=== PATIENT | male | born 1970 | race Two or more races ===

== ENCOUNTER 2020-06-11 17:06 | Inpatient (IN) | payer OTHER ==
[~2020-06-11] VITALS: Ht 175.3 cm; Wt 131.5 kg
[2020-06-11] MEDS ORDERED: ONDANSETRON HCL/PF 4 MG/2 ML VIAL ONE (17:22)
[2020-06-11] MEDS ORDERED: MORPHINE SULFATE INJ 4 MG/ML DISP.SYRIN ONE ×2 (17:22→18:17)
[2020-06-11] MEDS ORDERED: IV NS 0.9% 1,000 ML BAG IV ONE (17:30)
[2020-06-11] MEDS ORDERED: MORPHINE SULFATE INJ 2 MG/ML DISP.SYRIN IV ONE ×2 (17:30→18:30)
[2020-06-11] MEDS ORDERED: ONDANSETRON HCL/PF 4 MG/2 ML VIAL IVP ONE (17:30)
[2020-06-11 17:36] LABS: BASOPHILS % (AUTO) 0.6 % (0.0-2.0); EOSINOPHILS % (AUTO) 1.1 % (0.0-6.0); HEMATOCRIT 44 % (39-51); HEMOGLOBIN 15.5 g/dL (13.5-17.5); LYMPHOCYTES # (AUTO) 1.7 /CMM (0.8-4.8); LYMPHOCYTES % (AUTO) 30.4 % (20.0-44.0); MEAN CORPUSCULAR HGB CONC 36 g/dl (31.0-36.0); MEAN CORPUSCULAR VOLUME 99 fL (80-96); MONOCYTES # (AUTO) 0.4 /CMM (0.1-1.30); MONOCYTES % (AUTO) 6.8 % (2.0-12.0); NEUTROPHILS # (AUTO) 3.4 /CMM (1.8-8.9); NEUTROPHILS % (AUTO) 61.1 % (43.0-81.0); PLATELET COUNT (AUTO) 161 /CMM (150-450); RED BLOOD CELL COUNT(AUTO) 4.39 MIL/uL (4.5-6.0); WHITE BLOOD COUNT (AUTO) 5.6 K/uL (4.3-11.0)
[2020-06-11 17:44] LABS: CREATININE 0.7 mg/dL (0.6-1.3); POTASSIUM 3.7 mmol/L (3.5-5.1)
[2020-06-11 17:49] LABS: BILIRUBIN,URINE Negative (NEGATIVE); BLOOD, URINE Negative Ery/uL (NEGATIVE); COLOR,URINE YELLOW (YELLOW); LEUKOCYTE ESTERASE ,URINE Negative (NEGATIVE); NITRITE, URINE Negative (NEGATIVE); PH,URINE 5.5 (5.0-8.0); PROTEIN,URINE Negative (NEGATIVE); UGLUCOSE Negative (NEGATIVE); UROBILINOGEN,URINE 0.2 EU/dL (0.2)
[2020-06-11 17:49] LABS: ALBUMIN 3.8 g/dL (3.4-5.0); BILIRUBIN,DIRECT 0.1 mg/dL (0.0-0.2); BILIRUBIN,TOTAL 0.4 mg/dL (0.2-1.0); TOTAL PROTEIN, SERUM 8.2 g/dL (6.4-8.2)
[2020-06-11] MEDS ORDERED: IOHEXOL-300 100 ML VIAL IV ONE (18:02)
[2020-06-11] MEDS ORDERED: IV NS 0.9% 250 ML IV ONE (18:02)
[2020-06-11] MEDS ORDERED: CT SWABBABLE VALVE TRANS SET 1 EA INFUS.SET MC ONE (18:02)
--- NOTE | 2020-06-11 19:08 | NUR ---
DR CAMPBELL SPEAKING WITH DR BUENROSTRO
--- NOTE | 2020-06-11 19:18 | NUR ---
GAVE MOVESHEET TO ADMITTING
--- NOTE | 2020-06-11 19:19 | NUR ---
LUCYID SWABBED, SENT TO LAB.
[2020-06-11] MEDS ORDERED: HYDROMORPHONE 1 MG/1 ML DISP.SYRIN IV ONE (19:30)
--- NOTE | 2020-06-11 19:42 | NUR ---
CALL FROM LAB, RAPID COVID NEGATIVE.
[2020-06-11] MEDS ORDERED: HYDROMORPHONE 1 MG/1 ML DISP.SYRIN ONE (19:44)
--- NOTE | 2020-06-11 19:50 | NUR ---
PT MEDICATED, VSS. ON MONITOR AND PULSE OX.
[2020-06-11] MEDS ORDERED: Z GUARD REMEDY 2 OZ OINT TP PRN (20:00)
[2020-06-11] MEDS ORDERED: HYDROCODONE/APAP 5/325MG TABLET PO PRN (20:00)
[2020-06-11] MEDS ORDERED: ONDANSETRON HCL/PF 4 MG/2 ML VIAL IVP PRN (20:00)
[2020-06-11] MEDS ORDERED: MAG HYDROX/AL HYDROX/SIMETH 30 ML UDC PO PRN (20:00)
[2020-06-11] MEDS ORDERED: ACETAMINOPHEN 325 MG TABLET PO PRN (20:00)
[2020-06-11] MEDS ORDERED: MAGNESIUM HYDROXIDE 30 ML UDC PO PRN (20:00)
[2020-06-11] MEDS ORDERED: ZOLPIDEM TARTRATE 5 MG TABLET PO PRN (20:00)
--- NOTE | 2020-06-11 20:13 | NUR ---
REPORT GIVEN TO BRIAN CONDE FOR NAT
[2020-06-11 21:10] VITALS: BP 132/85
--- NOTE | 2020-06-11 21:10 | NUR ---
MS AMBULANCE DRIVER/OPENING NOTES PATIENT ARRIVED TO UNIT VIA WHEELCHAIR, ACCOMPANIED BY ER STAFF; PATIENT A/OX4, BREATHING EVEN AND UNLABORED; TOLERATING ROOM AIR WELL; NO SOB NOTED; AMBULATORY WITH STEADY GAIT; PATIENT COMPLAINING OF ABDOMINAL PAIN 5/10, TOLERABLE; PATIENT REPORTED HE WILL LET US KNOW IF HE NEEDS ANY PAIN MEDICATION; L HAND # 20 INTACT AND PATENT; FLUSHING WELL; NO S/S OF REDNESS OR INFILTRATION NOTED; PATIENT ORIENTED TO UNIT AND STAFF; SAFETY PRECAUTIONS IMPLEMENTED; BED LOCKED IN LOW POSITION; SIDE RAILSX2; CALL LIGHT WITHIN EASY REACH; WILL CONT TO MONITOR
[2020-06-11 21:20] VITALS: BP 132/85
--- NOTE | 2020-06-11 21:45 | NUR ---
MS RN NOTES PATIENT DENIES TAKING ANY HOME MEDS; PATIENT REPORTED HE DOES NOT TAKE ANY HOME MEDICATIONS;
[2020-06-11] MEDS: MORPHINE SULFATE INJ 2 MG/ML DISP.SYRIN IV PRN (22:37)
--- NOTE | 2020-06-11 22:51 | NUR ---
MS RN NOTES PATIENT COMPLAINING OF ABDOMINAL PAIN 03/25, MORPHINE ADMINISTERED PER MD ORDER; WILL CONT TO MONITOR; PATIENT VTE SCORE 2; PATIENT EDUCATED ON VTE PUMPS, PATIENT DECLINED/REFUSED SINCE HE IS AMBULATORY; PATIENT EDUCATED ON RISKS/BENEFITS; PATIENT REFUSED; WILL CONT TO MONITOR
[2020-06-11] MEDS: IV D5/0.45 NACL 1,000 ML IV PRN (23:02)
[2020-06-12] MEDS: MORPHINE SULFATE INJ 2 MG/ML DISP.SYRIN IV PRN ×5 (02:37→20:14)
[2020-06-12] MEDS: PANTOPRAZOLE 40 MG TABLET.DR PO SCH ×2 (06:51→06:57)
[2020-06-12 06:58] LABS: BASOPHILS % (AUTO) 0.5 % (0.0-2.0); EOSINOPHILS % (AUTO) 3.1 % (0.0-6.0); HEMATOCRIT 42 % (39-51); HEMOGLOBIN 14.6 g/dL (13.5-17.5); LYMPHOCYTES # (AUTO) 2.1 /CMM (0.8-4.8); LYMPHOCYTES % (AUTO) 38.7 % (20.0-44.0); MEAN CORPUSCULAR HGB CONC 35 g/dl (31.0-36.0); MEAN CORPUSCULAR VOLUME 102 fL (80-96); MONOCYTES # (AUTO) 0.6 /CMM (0.1-1.30); MONOCYTES % (AUTO) 10.5 % (2.0-12.0); NEUTROPHILS # (AUTO) 2.6 /CMM (1.8-8.9); NEUTROPHILS % (AUTO) 47.2 % (43.0-81.0); PLATELET COUNT (AUTO) 145 /CMM (150-450); RED BLOOD CELL COUNT(AUTO) 4.12 MIL/uL (4.5-6.0); WHITE BLOOD COUNT (AUTO) 5.5 K/uL (4.3-11.0)
[2020-06-12 07:09] LABS: CALCIUM, SERUM 8.5 mg/dL (8.5-10.1); CREATININE 0.7 mg/dL (0.6-1.3); MAGNESIUM 2.2 mg/dL (1.8-2.4); PHOSPHORUS 4.4 mg/dL (2.5-4.9); POTASSIUM 3.9 mmol/L (3.5-5.1)
--- NOTE | 2020-06-12 07:09 | NUR ---
MS RN CLOSING NOTES PATIENT RESTING IN BED COMFORTABLY; A/OX4, BREATHING EVEN AND UNLABORED; TOLERATING ROOM AIR WELL; NO SOB NOTED; PATIENT NPO STATUS MAINTAINED; L HAND #20 INTACT AND PATENT; FLUSHING WELL; TOLERATING IVF WELL; PATIENT ABLE TO MAKE NEEDS KNOWN; ALL NEEDS RENDERED; SAFETY PRECAUTIONS IMPLEMENTED; BED LOCKED IN LOW POSITION; SIDE RAILSX2; CALL LIGHT WITHIN REACH; WILL ENDORSE NAT TO ONCOMING SHIFT
[2020-06-12 07:20] LABS: THYROID STIMULATING HORMONE 4.575 uIU/mL (0.358-3.74)
[2020-06-12 08:00] VITALS: BP 100/60
[2020-06-12] MEDS ORDERED: BUPR100T13 PO (08:18)
[2020-06-12] MEDS ORDERED: GABA300C PO (08:18)
[2020-06-12] MEDS ORDERED: CLON0.1T PO (08:18)
--- NOTE | 2020-06-12 13:00 | NUR ---
shanti palmer in and awre of abd. pain to call dr. muñoz for consult.
--- NOTE | 2020-06-12 13:40 | NUR ---
shanti palmer social worker school here on floor and aware of nausea today after cl liquids.requests to be notified after dinner on pt status.
[2020-06-12 16:00] VITALS: BP 106/61
--- NOTE | 2020-06-12 17:30 | NUR ---
med. x2 with morphine 4mg iv and x1 with zofran.
--- NOTE | 2020-06-12 18:05 | NUR ---
shanti palmer called to check on pt. aware still with nausea after dinner,states she will put in new orders.
--- NOTE | 2020-06-12 18:35 | NUR ---
call out to dr. muñoz,informed him pain and nausea after cl liq. dinner.rn told him spoke to shanti palmer said she will hold pt. till tomorrow.
[2020-06-12] MEDS: IV D5/0.45 NACL 1,000 ML IV PRN (19:01)
--- NOTE | 2020-06-12 19:15 | NUR ---
RN NOTES: RECEIVED AWAKE ON BED, IN SEMI FOWLERS POSITION, A/0X2-4,ORIENTED TO UNIT AND STAFF, NON LABORED BREATHING.FALL, SAFETY AND ASPIRATION PRECAUTION OBSERVED, LH PATENT, BED LOW AND LOCKED, KEPT CALL LIGHT WITHIN EASY REACH.
[2020-06-12 20:00] VITALS: BP 101/61
--- NOTE | 2020-06-12 20:24 | NUR ---
RN NOTES: -AT 1999 EXPLAINED TO PATIENT THAT RN WILL BE GIVING HIS PAIN MEDICATION AFTER SHE GOT ACCESS FROM [employer], INITIALLY HE FEEL UPSET BUT HE UNDERSTAND,HE REFUSE FOR BP CHECK WITH SHIRT FINISHER, AFTER RN EXPLANATION HE AGREED, BP WAS A LITTLE BIT HIGH BECAUSE HE GET UP AND WALK TO THE BATHROOM BP-143/100 MA-90. -MORPHINE GIVEN AT 2013, AFTER THAT HE FEELS RELIEVED AND HE CALM DOWN, RN EXPLAINED TO HIM WE WILL RE-CHECKED THE BP AFTER 30 MIN.
--- NOTE | 2020-06-12 20:45 | NUR ---
RN NOTES: AWAKE WATCHING TV.STABLE AND DOESN'T LOOK ANXIOUS OR IN PAIN HE SAID MORPHINE HELPS, NON PHARMACOLOGIC INTERVENTION RENDERED, HE REQUEST TO CHECK BP LATER, HE WANTS TO RELAX.
[2020-06-12] MEDS: FAMOTIDINE/PF INJ 20 MG/2 ML VIAL IV SCH (21:07)
--- NOTE | 2020-06-12 22:06 | NUR ---
RN NOTES: AGREED FOR BP CHECKED - 102/65 FL-51
[2020-06-13] MEDS: MORPHINE SULFATE INJ 2 MG/ML DISP.SYRIN IV PRN ×3 (00:16→08:51)
--- NOTE | 2020-06-13 02:00 | NUR ---
RN NOTES: -0016 COMPLAINED OF PAIN AND DISCOMFORT,REQUEST FOR HIS PAIN MEDICATION BP-103/70 MA-60 ABLE TO SLEEP AND REST, KEPT ON CLOSE WATCH, CALL LIGHT WITHIN EASY REACH.
--- NOTE | 2020-06-13 05:03 | NUR ---
RN NOTES: -AMBULATE GOING TO THE BATHROOM,WHEN HE RETURNED BACK TO BED ASK FOR HIS PAIN MEDICATION, BP-110/65 TX-70,MORPHINE GIVEN. DIM LIT AND GIVEN WARM BLANKET.
--- NOTE | 2020-06-13 05:29 | NUR ---
RN NOTES: ABLE TO SLEEP AND REST, IVF RESUMED, KEPT CALL LGIHT WITHIN EASY REACH.
--- NOTE | 2020-06-13 07:30 | NUR ---
RN OPENING NOTES RECEIVED PT IN BED AWAKE, A/O X4. ON RA SATURATING @99%. NO SOB OR ANY RESPIRATORY DISTRESS NOTED. NO PAIN REPORTED AT THIS TIME. AMBULATORY WITH BRP. SAFETY MEASURES IMPLEMENTED. CALL LIGHT WITHIN REACH. BED LOCKED AND AT LOWEST POSITION WITH SIDE RAILS UP X2. HOB ELEVATED. WILL CONTINUE TO MONITOR
--- NOTE | 2020-06-13 07:59 | NUR ---
RN NOTES: -ABLE TO SLEEP IN THE NIGHT, , NO BM , URINE-250ML, ENDORSED TO F/U DIET TO ADVANCE FROM CLEAR LIQUID TO TOLERATED,IVF CONTINUE, FOR LAB TEST THIS MORNING, FOR POSSIBLE DISCHARGE PER DR. CAMPBELL. ENDORSED FOR CONTINUITY OF CARE.
[2020-06-13 08:00] VITALS: BP 119/72
[2020-06-13] MEDS: GABAPENTIN 300 MG CAPSULE PO SCH ×2 (08:50→14:58)
[2020-06-13] MEDS: FAMOTIDINE/PF INJ 20 MG/2 ML VIAL IV SCH (08:50)
[2020-06-13 08:57] LABS: BASOPHILS % (AUTO) 0.6 % (0.0-2.0); EOSINOPHILS % (AUTO) 3.5 % (0.0-6.0); HEMATOCRIT 40 % (39-51); HEMOGLOBIN 13.9 g/dL (13.5-17.5); LYMPHOCYTES # (AUTO) 1.6 /CMM (0.8-4.8); LYMPHOCYTES % (AUTO) 34.8 % (20.0-44.0); MEAN CORPUSCULAR HGB CONC 35 g/dl (31.0-36.0); MEAN CORPUSCULAR VOLUME 100 fL (80-96); MONOCYTES # (AUTO) 0.6 /CMM (0.1-1.30); MONOCYTES % (AUTO) 12.3 % (2.0-12.0); NEUTROPHILS # (AUTO) 2.2 /CMM (1.8-8.9); NEUTROPHILS % (AUTO) 48.8 % (43.0-81.0); PLATELET COUNT (AUTO) 121 /CMM (150-450); RED BLOOD CELL COUNT(AUTO) 4.03 MIL/uL (4.5-6.0); WHITE BLOOD COUNT (AUTO) 4.5 K/uL (4.3-11.0)
[2020-06-13] MEDS ORDERED: buPROPion 100 MG TABLET PO SCH (09:00)
[2020-06-13 09:03] LABS: CALCIUM, SERUM 8.8 mg/dL (8.5-10.1); CREATININE 0.7 mg/dL (0.6-1.3); MAGNESIUM 2.1 mg/dL (1.8-2.4); PHOSPHORUS 3.7 mg/dL (2.5-4.9)
[2020-06-13] MEDS ORDERED: Z GUARD REMEDY 2 OZ OINT TP ONE (09:21)
[2020-06-13 11:14] LABS: ALBUMIN 3.1 g/dL (3.4-5.0); BILIRUBIN,DIRECT 0.1 mg/dL (0.0-0.2); BILIRUBIN,TOTAL 0.6 mg/dL (0.2-1.0); TOTAL PROTEIN, SERUM 6.8 g/dL (6.4-8.2)
[2020-06-13] MEDS ORDERED: FAMOTIDINE (20 MG) 20 MG TABLET PO SCH (12:45)
[2020-06-13] MEDS ORDERED: HYDR-3972 PO (13:33)
--- NOTE | 2020-06-13 16:40 | NUR ---
RN CLOSING NOTES PT DISCHARGED TO HOME IN STABLE CONDITION. DISCHARGE INSTRUCTIONS GIVEN TO PT, VERBALIZED UNDERSTANDING. PRESCRIPTION PROVIDED. VS WNL. REFUSED FLU AND PNEUMO VACCINES DESPITE EDUCATION X3. SKIN IS INTACT. WENT HOME VIA PRIVATE CAR ACCOMPANIED BY FRIEND.
== END 2020-06-13 17:00 | disposition home or self-care (01) | DRG 254 ==
LOC: ER 17:10 → MERGE 20:15 → MED 20:15
PROVIDERS: ADMIT Student in an Organized Health Care Education/Training Program; ATTEND Registered Nurse
DX: K43.9 Ventral hernia without obstruction or gangrene (principal); G89.4 Chronic pain syndrome; B19.20 Unspecified viral hepatitis C without hepatic coma; F20.9 Schizophrenia, unspecified; F31.9 Bipolar disorder, unspecified; F41.9 Anxiety disorder, unspecified; Z85.47 Personal history of malignant neoplasm of testis; Z87.891 Personal history of nicotine dependence; K43.6 Other and unspecified ventral hernia with obstruction, without gangrene; K57.30 Diverticulosis of large intestine without perforation or abscess without bleeding; Z76.5 Malingerer [conscious simulation]; E66.01 Morbid (severe) obesity due to excess calories; Z68.41 Body mass index [BMI] 40.0-44.9, adult; E44.0 Moderate protein-calorie malnutrition
CPT/HCPCS: 36415; 80048-TC; 80061-TC; 80076-TC; 81001; 83690-TC; 83735-TC; 84100-TC; 84443-TC; 85025-TC; 87081-TC; C9803; G0378; J1170; J2270; J2405; J3490; J7030; J7050; Q9967

== ENCOUNTER 2020-06-14 03:39 | Emergency (ER) | payer OTHER ==
[~2020-06-14] VITALS: Ht 182.9 cm; Wt 122.5 kg
[~2020-06-14 03:39] MED LIST: BUPR100T13 PO; CLON0.1T PO; GABA300C PO; HYDR-3972 PO
--- NOTE | 2020-06-14 03:42 | NUR ---
PT BIBSELF C/O DEPRESSION. PT IS REQUESTING MEDICAL CLEARANCE FOR VOLUNTARY ADMISSION INTO PSYCH FACILITY. PT AAOX4, CALM AND COOPERATIVE. VITAL SIGNS STABLE. RESPIRATIONS EVEN AND UNLABORED. AMBULATORY WITH STEADY GAIT. NO ACUTE DISTRESS NOTED AT THIS TIME. WILL CONTINUE TO MONITOR
--- NOTE | 2020-06-14 03:50 | NUR ---
URINE COLLECTED AND SENT TO LAB
--- NOTE | 2020-06-14 04:00 | NUR ---
MARKING MACHINE OPERATOR AT BEDSIDE FOR BLOOD DRAW
--- NOTE | 2020-06-14 04:07 | NUR ---
COVID SWAB COLLECTED AND SENT TO LAB
[2020-06-14 04:19] LABS: BILIRUBIN,URINE NEGATIVE (NEGATIVE); BLOOD, URINE NEGATIVE Ery/uL (NEGATIVE); COLOR,URINE YELLOW (YELLOW); LEUKOCYTE ESTERASE ,URINE NEGATIVE (NEGATIVE); NITRITE, URINE NEGATIVE (NEGATIVE); PROTEIN,URINE NEGATIVE (NEGATIVE); UGLUCOSE NEGATIVE (NEGATIVE); UROBILINOGEN,URINE 0.2 EU/dL (0.2)
[2020-06-14 04:31] LABS: CALCIUM, SERUM 8.1 mg/dL (8.5-10.1); CARBON DIOXIDE 26 mmol/L (21-32); CHLORIDE 106 mmol/L (98-107); GLUCOSE 143 mg/dL (74-106); POTASSIUM 4.1 mmol/L (3.5-5.1); SODIUM SERUM 144 mmol/L (136-145); UREA NITROGEN, BLOOD 14 mg/dL (7-18)
[2020-06-14 04:32] LABS: BASOPHILS % (AUTO) 0.4 % (0.0-2.0); EOSINOPHILS % (AUTO) 2.3 % (0.0-6.0); HEMATOCRIT 41 % (39-51); HEMOGLOBIN 14.8 g/dL (13.5-17.5); LYMPHOCYTES # (AUTO) 2.1 /CMM (0.8-4.8); LYMPHOCYTES % (AUTO) 34.8 % (20.0-44.0); MEAN CORPUSCULAR HGB CONC 36 g/dl (31.0-36.0); MEAN CORPUSCULAR VOLUME 99 fL (80-96); MONOCYTES # (AUTO) 0.7 /CMM (0.1-1.30); MONOCYTES % (AUTO) 11.3 % (2.0-12.0); NEUTROPHILS % (AUTO) 51.2 % (43.0-81.0); PLATELET COUNT (AUTO) 147 /CMM (150-450); RED BLOOD CELL COUNT(AUTO) 4.18 MIL/uL (4.5-6.0); WHITE BLOOD COUNT (AUTO) 5.9 K/uL (4.3-11.0)
[2020-06-14 04:36] LABS: ACETAMINOPHEN 0 ug/ml (10-30); ALANINE AMINOTRANSFERASE 51 U/L (12-78); ALBUMIN 3.6 g/dL (3.4-5.0); ALCOHOL, BLOOD < 3 mg/dL (0-0); ALKALINE PHOSPHATASE 92 U/L (46-116); ASPARTATE AMINOTRANSFERASE 23 U/L (15-37); BILIRUBIN,DIRECT 0.1 mg/dL (0.0-0.2); BILIRUBIN,TOTAL 0.3 mg/dL (0.2-1.0); TOTAL PROTEIN, SERUM 7.7 g/dL (6.4-8.2)
--- NOTE | 2020-06-14 05:13 | NUR ---
facesheet and clinicals faxed to domenic landaverde.
--- NOTE | 2020-06-14 07:20 | NUR ---
PER SO SATYA PHONE CALL PT IS ACCEPTED BY DR HOPKINS AND TREVOR TO UNIT 1 AND NUMBER FOR REPORT IS .
--- NOTE | 2020-06-14 12:39 | NUR ---
report given to Alan CONDE for leisa
--- NOTE | 2020-06-14 12:40 | NUR ---
CALLED [facility] 30 MINS.
--- NOTE | 2020-06-14 16:00 | NUR ---
Patient picked up by private ambulance going to [facility] in no distress. All belongings given to patient.
[2020-06-14 18:55] VITALS: BP 145/81
== END 2020-06-14 18:55 ==
LOC: ER 03:43 → MERGE 03:43 → ER 18:55
DX: F32.9 Major depressive disorder, single episode, unspecified (principal); F22 Delusional disorders; Z20.828 Contact with and (suspected) exposure to other viral communicable diseases; Z85.47 Personal history of malignant neoplasm of testis; Z86.19 Personal history of other infectious and parasitic diseases; Z79.899 Other long term (current) drug therapy
CPT/HCPCS: 36415; 80048; 80076; 80299; 80307; 80320; 81001; 85025; 87426; 99285; C9803; G0480